=== PATIENT | female | born 1995 | race Two or more races ===

== ENCOUNTER 2020-09-15 01:43 | Inpatient (IN) | payer OTHER ==
[2020-09-15] MEDS ORDERED: ELECTROLYTE-148 SOLN 500 ML IV SCH ×2 (15:25→16:25)
[2020-09-15 16:20] LABS: BASO % 0.7 % (0-2.0); EOS % 0.2 % (0-4.5); HEMATOCRIT 32.7 % (32.4-45.2); HEMOGLOBIN 11.4 GM/dL (10.7-15.3); LYMPH % 19.9 % (8-40); MCH 31.2 pg (25.7-33.7); MCHC 34.9 g/dl (32.0-36.0); MEAN CELL VOLUME 89.4 fl (80-96); MEAN PLT VOLUME 10.4 fl (7.5-11.1); MONO % 5.4 % (3.8-10.2); NEUT % 73.8 % (42.8-82.8); PLATELET COUNT 225 10^3/uL (134-434); RBC 3.66 M/mm3 (3.60-5.2); RDW 14.1 % (11.6-15.6); WHITE BLOOD COUNT 4.9 K/mm3 (4.0-10.0)
[2020-09-15 16:38] LABS: ALBUMIN 2.2 g/dl (3.4-5.0); BLOOD UREA NITROGEN 11.8 mg/dL (7-18)
[2020-09-15 16:41] LABS: CREATININE 0.6 mg/dL (0.55-1.3)
[2020-09-15 16:43] LABS: TOT PROT 5.9 g/dl (6.4-8.2)
[2020-09-15 17:52] VITALS: BMI 25.9
[2020-09-15] MEDS ORDERED: BETAMET ACET/BETAMET NA PH 30 MG/5 ML VIAL ONE (18:03)
[2020-09-15] MEDS ORDERED: BETAMET ACET/BETAMET NA PH 30 MG/5 ML VIAL IM ONE (18:30)
[2020-09-15] MEDS ORDERED: ELECTROLYTE-148 SOLN 1,000 ML IV SCH (18:45)
[2020-09-15] MEDS ORDERED: FAMOTIDINE 20 MG/50 ML IVPB 20 MG/50 ML MG IVPB ONE ×2 (18:50→19:27)
[2020-09-15] MEDS: URSODIOL 300 MG CAPSULE PO SCH (22:00)
[2020-09-15 22:35] LABS: EPI CELLS >36 /uL (0-25.1); HYALINE CASTS 4 /uL (0-3.1); URINE APPEARANCE CLEAR; URINE BACTERIA 350 /uL (0-1359); URINE BILIRUBIN NEGATIVE (NEGATIVE); URINE COLOR DK YELLOW; URINE GLUCOSE (UA) NEGATIVE (NEGATIVE); URINE KETONE 4+ (NEGATIVE); URINE LEUK ESTERASE TRACE (NEGATIVE); URINE NITRITE NEGATIVE (NEGATIVE); URINE PROTEIN NEGATIVE (NEGATIVE); URINE RBC 11 /uL (0-23.9); URINE WBC 22 /uL (0-25.8)
[2020-09-15] MEDS ORDERED: AMPICILLIN - 2 GM in SODIUM CHLORIDE 100 ML IVPB ONE ×2 (23:25→23:36)
[2020-09-15] MEDS ORDERED: AMPICILLIN SODIUM 2 GM VIAL ONE (23:29)
[2020-09-15 23:46] LABS: BASO % 0.2 % (0-2.0); HEMATOCRIT 33.6 % (32.4-45.2); HEMOGLOBIN 11.7 GM/dL (10.7-15.3); LYMPH % 12.2 % (8-40); MCHC 34.8 g/dl (32.0-36.0); MEAN PLT VOLUME 10.4 fl (7.5-11.1); NEUT % 86.6 % (42.8-82.8); PLATELET COUNT 227 10^3/uL (134-434); RBC 3.78 M/mm3 (3.60-5.2); RDW 14.4 % (11.6-15.6); WHITE BLOOD COUNT 6.7 K/mm3 (4.0-10.0)
[2020-09-15 23:53] LABS: INR 1.01 (0.83-1.09); PROTHROMBIN TIME (PATIENT) 12.2 SEC (9.7-13.0)
[2020-09-15 23:56] LABS: ACTIVATED PTT 31.5 SECONDS (25.2-36.5)
[2020-09-16 00:06] LABS: CALCIUM 8.4 mg/dL (8.5-10.1)
[2020-09-16 00:07] LABS: ALBUMIN 2.4 g/dl (3.4-5.0); BLOOD UREA NITROGEN 11.2 mg/dL (7-18)
[2020-09-16 00:10] LABS: CREATININE 0.5 mg/dL (0.55-1.3)
[2020-09-16 00:12] LABS: BILIRUBIN,TOTAL 1.1 mg/dL (0.2-1); TOT PROT 6.5 g/dl (6.4-8.2)
[2020-09-16] MEDS ORDERED: TERBUTALINE SULFATE 1 MG/1 ML VIAL SQ ONE ×2 (03:03→03:05)
[2020-09-16] MEDS: AMPICILLIN - 1 GM in SODIUM CHLORIDE 100 ML IVPB SCH (03:15)
[2020-09-16] MEDS ORDERED: ONDANSETRON 4 MG/2 ML VIAL IVPUSH PRN (03:17)
[2020-09-16] MEDS ORDERED: morphine SULFATE/PF 0.5 MG/ML (2cc Syringe - QUVA) ONE (03:22)
[2020-09-16] MEDS ORDERED: AMPICILLIN SODIUM 1 GM VIAL ONE (03:22)
[2020-09-16] MEDS ORDERED: ceFAZolin SODIUM 1 GM VIAL ONE (03:23)
[2020-09-16] MEDS ORDERED: OXYTOCIN 10 UNITS/ML VIAL ONE (04:09)
[2020-09-16] MEDS ORDERED: ONDANSETRON 4 MG/2 ML VIAL ONE (04:13)
[2020-09-16] MEDS ORDERED: KETOROLAC TROMETHAMINE 30 MG/1 ML VIAL ONE (04:13)
[2020-09-16] MEDS ORDERED: IBUPROFEN 800 MG/8 ML IJ IVPB PRN ×2 (05:07→20:07)
[2020-09-16] MEDS ORDERED: METHYLERGONOVINE MALEATE 0.2 MG/1 ML AMP IM PRN ×2 (05:07→20:07)
[2020-09-16] MEDS ORDERED: IBUPROFEN 600 MG TABLET (FP) PO PRN (05:07)
[2020-09-16] MEDS ORDERED: oxyCODONE HCL 5 MG TABLET PO PRN ×2 (05:07→20:07)
[2020-09-16] MEDS ORDERED: SENNOSIDES/DOCUSATE COMBO (SENNA PLUS) TABLET (UD) PO PRN ×2 (05:07→20:07)
[2020-09-16] MEDS ORDERED: SIMETHICONE 80 MG TAB.CHEW (FP) PO PRN (05:07)
[2020-09-16] MEDS ORDERED: ACETAMINOPHEN 325 MG TABLET (FP) PO PRN (05:07)
[2020-09-16 05:15] LABS: CORD BASE EXCESS -12.8 mmol/L (0-2); CORD HCO3 13.5 mmHg (20-29); CORD PCO2 32.7 mmHg (30-78); CORD pH 7.233 (7.14-7.44)
[2020-09-16] MEDS ORDERED: OXYTOCIN 20 UNITS in 0.9% NS 20 UNIT/1,000 ML INFUS.BAG IV SCH (05:15)
[2020-09-16 05:18] LABS: CORD HCO3 16.8 mmHg (20-29); CORD PCO2 47.7 mmHg (30-78); CORD pH 7.165 (7.14-7.44)
[2020-09-16] MEDS ORDERED: SODIUM CHLORIDE 500 ML IV ONE (07:30)
[2020-09-16] MEDS: URSODIOL 300 MG CAPSULE PO SCH ×2 (09:58→23:00)
[2020-09-16] MEDS ORDERED: PRENATAL VITAMINS W/ FOLIC ACID TABLET (FP) PO SCH (10:00)
[2020-09-16 10:30] LABS: BASO % 0.2 % (0-2.0); HEMATOCRIT 29.6 % (32.4-45.2); HEMOGLOBIN 10.1 GM/dL (10.7-15.3); LYMPH % 6.5 % (8-40); MCH 30.9 pg (25.7-33.7); MCHC 34.1 g/dl (32.0-36.0); MEAN CELL VOLUME 90.8 fl (80-96); MEAN PLT VOLUME 10.3 fl (7.5-11.1); MONO % 6.1 % (3.8-10.2); NEUT % 87.2 % (42.8-82.8); PLATELET COUNT 221 10^3/uL (134-434); RBC 3.26 M/mm3 (3.60-5.2); RDW 14.5 % (11.6-15.6); WHITE BLOOD COUNT 17.1 K/mm3 (4.0-10.0)
[2020-09-16] MEDS ORDERED: BETAMET ACET/BETAMET NA PH 30 MG/5 ML VIAL IM ONE (18:30)
[2020-09-16] MEDS: SIMETHICONE 80 MG TAB.CHEW (FP) PO PRN (23:00)
[2020-09-16] MEDS: ACETAMINOPHEN 325 MG TABLET (FP) PO PRN (23:00)
[2020-09-16] MEDS: IBUPROFEN 600 MG TABLET (FP) PO PRN (23:05)
[2020-09-17] MEDS ORDERED: BISACODYL 10 MG SUPP.RECT RC PRN ×2 (05:08→20:09)
[2020-09-17 08:58] LABS: BASO % 0.3 % (0-2.0); EOS % 0.3 % (0-4.5); HEMATOCRIT 29.8 % (32.4-45.2); HEMOGLOBIN 10.4 GM/dL (10.7-15.3); LYMPH % 15.1 % (8-40); MCH 31.3 pg (25.7-33.7); MCHC 34.9 g/dl (32.0-36.0); MEAN CELL VOLUME 89.9 fl (80-96); MEAN PLT VOLUME 10.2 fl (7.5-11.1); MONO % 6.8 % (3.8-10.2); NEUT % 77.5 % (42.8-82.8); PLATELET COUNT 232 10^3/uL (134-434); RBC 3.31 M/mm3 (3.60-5.2); RDW 14.6 % (11.6-15.6); WHITE BLOOD COUNT 11.7 K/mm3 (4.0-10.0)
[2020-09-17 09:16] LABS: BLOOD UREA NITROGEN 9.6 mg/dL (7-18); CALCIUM 8.2 mg/dL (8.5-10.1)
[2020-09-17 09:17] LABS: ALBUMIN 2.2 g/dl (3.4-5.0)
[2020-09-17 09:20] LABS: CREATININE 0.6 mg/dL (0.55-1.3)
[2020-09-17 09:21] LABS: BILIRUBIN,TOTAL 0.6 mg/dL (0.2-1)
[2020-09-17 09:22] LABS: TOT PROT 5.6 g/dl (6.4-8.2)
[2020-09-17] MEDS: PRENATAL VITAMINS W/ FOLIC ACID TABLET (FP) PO SCH (09:36)
[2020-09-17] MEDS: SIMETHICONE 80 MG TAB.CHEW (FP) PO PRN ×2 (09:36→20:42)
[2020-09-17] MEDS: URSODIOL 300 MG CAPSULE PO SCH ×2 (09:36→21:57)
[2020-09-17] MEDS: FERROUS SO4 325 MG TABLET (FP) PO SCH ×2 (09:40→17:52)
[2020-09-17] MEDS ORDERED: DIPHTH,PERTUSS(ACELL),TET 0.5 ML DISP.SYRIN IM ONE (10:00)
[2020-09-17] MEDS: IBUPROFEN 600 MG TABLET (FP) PO PRN ×2 (11:55→20:42)
[2020-09-17] MEDS: ACETAMINOPHEN 325 MG TABLET (FP) PO PRN (20:41)
[2020-09-18] MEDS: AMPICILLIN - 1 GM in SODIUM CHLORIDE 100 ML IVPB SCH (00:24)
[2020-09-18] MEDS: IBUPROFEN 600 MG TABLET (FP) PO PRN ×3 (01:34→19:53)
[2020-09-18] MEDS: ACETAMINOPHEN 325 MG TABLET (FP) PO PRN (01:34)
[2020-09-18] MEDS: SIMETHICONE 80 MG TAB.CHEW (FP) PO PRN ×3 (01:34→19:53)
[2020-09-18] MEDS: FERROUS SO4 325 MG TABLET (FP) PO SCH ×2 (07:39→16:44)
[2020-09-18] MEDS: PRENATAL VITAMINS W/ FOLIC ACID TABLET (FP) PO SCH (09:11)
[2020-09-18] MEDS: URSODIOL 300 MG CAPSULE PO SCH ×2 (09:48→21:18)
[2020-09-18 22:20] VITALS: TEMP 98.1
[2020-09-19] MEDS: FERROUS SO4 325 MG TABLET (FP) PO SCH (08:09)
[2020-09-19] MEDS: PRENATAL VITAMINS W/ FOLIC ACID TABLET (FP) PO SCH (09:25)
[2020-09-19] MEDS: URSODIOL 300 MG CAPSULE PO SCH (09:25)
[2020-09-19 10:33] VITALS: BP 98/60; PULSE 75
== END 2020-09-19 12:40 | disposition home or self-care (01) | DRG 540 ==
LOC: JDEL 01:43 → JLDR 17:05 → J3W 09-16 09:00
PROVIDERS: ADMIT Obstetrics & Gynecology; ATTEND Obstetrics & Gynecology
PROC: 10D00Z1 Extraction of Products of Conception, Low, Open Approach (ICD-10-PCS; principal; 2020-09-16)
DX: O60.23X0 Term delivery with preterm labor, third trimester, not applicable or unspecified (principal); O34.219 Maternal care for unspecified type scar from previous cesarean delivery; O42.92 Full-term premature rupture of membranes, unspecified as to length of time between rupture and onset of labor; Z3A.36 36 weeks gestation of pregnancy; Z37.0 Single live birth
CPT/HCPCS: 36415; 36600; 76705-TC; 80053; 81003; 82803; 85025; 85610; 85730; 86780; 86850; 86900; 86901; 88307-TC; 90715; 94010; 96372; C9803; U0003; U0005